=== PATIENT | male | born 1970 | race Caucasian/White ===

== ENCOUNTER 2018-01-13 08:00 | Outpatient (CLI) | payer OTHER ==
[2018-01-13 19:12] LABS: THYROID STIMULATING HORMONE 7.53 uIU/mL (0.34-5.60)
[2018-01-13 19:41] LABS: ALBUMIN 4.5 g/dL (3.2-5.5); ALBUMIN/GLOBULIN RATIO 1.6 (1.0-2.2); ALKALINE PHOSPHATASE 44 IU/L (42-121); ALT ALANINE AMINOTRANSFERASE 20 IU/L (10-60); AST ASPARTATE AMINOTRANSFERASE 27 IU/L (10-42); BILIRUBIN,TOTAL 0.8 mg/dL (0.2-1.0); BUN - BLOOD UREA NITROGEN 15 mg/dL (6-20); CALCIUM 9.1 mg/dL (8.5-10.3); CARBON DIOXIDE - CO2 27 mmol/L (21-32); CHLORIDE 102 mmol/L (101-111); CHOL/HDL RATIO 4.6 (<5.0); CHOLESTEROL 181 mg/dL; CREATININE 0.9 mg/dL (0.6-1.2); GFR - MDRD 90 (>89); GLUCOSE 85 mg/dL (70-100); HDL CHOLESTEROL 39 mg/dL; LDL CHOLESTEROL,CALCULATED 111 mg/dL; LDL/HDL RATIO 2.8 (<3.6); SODIUM 136 mmol/L (135-145); TOTAL PROTEIN 7.3 g/dL (6.7-8.2); VLDL CHOLESTEROL 31 mg/dL
[2018-01-13 20:14] LABS: FREE T4 (FREE THYROXINE) 0.56 ng/dL (0.58-1.64)
== END 2018-01-13 23:59 ==
LOC: LAB.WCP 08:00
PROVIDERS: ATTEND Family Medicine
DX: E03.9 Hypothyroidism, unspecified (principal); E78.5 Hyperlipidemia, unspecified; Z12.5 Encounter for screening for malignant neoplasm of prostate
CPT/HCPCS: 36415; 80053; 80061; 83721; 84153; 84439; 84443

== ENCOUNTER 2018-05-10 10:49 | Outpatient (CLI) | payer OTHER | END 2018-05-10 10:50 | disposition home or self-care (01) | LOC: SC 10:49 | PROVIDERS: ATTEND Internal Medicine Pulmonary Disease | DX: G47.33 Obstructive sleep apnea (adult) (pediatric) (principal) | CPT/HCPCS: 99203; 99212 ==

== ENCOUNTER 2018-12-03 10:36 | Outpatient (CLI) | payer OTHER ==
--- NOTE | 2018-12-03 12:54 | XRAY Report ---
Reason: PNEUMONIA Procedure Date: 12/03/2018 Accession Number: [id number] / [id number] Procedure: [facility] - Chest 2 View X-Ray CPT Code: 15049 FULL RESULT: EXAM: CHEST RADIOGRAPHY EXAM DATE: 12/03/2018 10:48 AM. CLINICAL HISTORY: Pneumonia. COMPARISON: CHEST 2 VIEW 11/17/2018 2:41 PM. TECHNIQUE: 2 views. FINDINGS: Lungs/Pleura: No focal opacities evident. No pleural effusion. No pneumothorax. Normal volumes. Mediastinum: Redemonstration of a prominent cardiomediastinal silhouette, borderline mild cardiomegaly. Other: None. IMPRESSION: No pneumonia. RADIA
== END 2018-12-03 10:37 | disposition home or self-care (01) ==
LOC: DI.WCP 10:36
PROVIDERS: ATTEND Family Medicine
DX: J18.9 Pneumonia, unspecified organism (principal)
CPT/HCPCS: 71046

== ENCOUNTER 2020-02-22 18:18 | Outpatient (CLI) | payer OTHER | END 2020-02-22 18:19 | disposition home or self-care (01) | LOC: COV 18:18 | PROVIDERS: ATTEND Family Medicine | DX: R05 Cough (principal); J02.9 Acute pharyngitis, unspecified | CPT/HCPCS: 81599 ==